=== PATIENT | female | born 1970 | race American Indian/Alaskan Native ===

== ENCOUNTER 2019-08-17 10:14 | Outpatient (CLI) | payer OTHER ==
--- NOTE | 2019-08-17 14:33 | Mammography Report ---
DIGITAL SCREENING MAMMOGRAM WITH CAD, 08/17/2019 INDICATION: Baseline screening mammography. TECHNIQUE: Digital bilateral 2D mammography was obtained in the craniocaudal and mediolateral obliq ue projections. This examination was interpreted with the benefit of Computer-Aided Detection analysi s. COMPARISON: None. FINDINGS: Breast Density: The breasts are heterogeneously dense, which may obscure small masses. The left breast is smaller than the right. A left upper asymmetry on the MLO view requires additional imaging. No architectural distortion or suspicious calcifications. There is no evidence of dominant mass, suspicious calcifications or architectural distortion in the right breast. IMPRESSION: Left asymmetry requires additional imaging. Recommend recall for left lateral and spot co mpression MLO views and left breast ultrasound if needed. Follow up recommendation: Special View: Spot Category 0: Incomplete. Needs additional imaging evaluation and/or prior mammograms for comparison. A "normal" or negative report should not discourage follow up or biopsy of a clinically significant f inding. A written summary of these findings will be mailed to the patient. The patient will be entered into a mammography reporting system which will generate a reminder letter for the patient's next appointmen t at the appropriate interval. The [employer] recommends yearly mammograms starting at age 40 and continuing as l jt as a woman is in good health. Breast MRI is recommended for women with an approximate 20-25% or greater lifetime risk of breast cancer, including women with a strong family history of breast or ova tanna cancer or who have been treated for Hodgkin's disease. Signer Name: Lupillo Kothari MD Signed: 08/17/2019 2:28 PM Workstation Name: [id number]
== END 2019-08-17 10:15 | disposition home or self-care (01) ==
LOC: MAMMO 10:14
PROVIDERS: ATTEND Family Medicine
DX: Z12.31 Encounter for screening mammogram for malignant neoplasm of breast (principal)
CPT/HCPCS: 77067

== ENCOUNTER 2019-09-01 09:07 | Outpatient (CLI) | payer SELFPAY ==
--- NOTE | 2019-09-01 11:16 | Mammography Report ---
DIGITAL DIAGNOSTIC MAMMOGRAM WITH CAD, -- 09/01/2019 INDICATION: Recalled to evaluate asymmetry. TECHNIQUE: Digital mammographic imaging was performed. Spot compression views were obtained. This examination was interpreted with the benefit of Computer-aided Detection analysis. COMPARISON: 08/17/2019 FINDINGS: Breast Density: The breast is heterogeneously dense, which may obscure small masses. Additional left mammographic views are negative. Satisfactory effacement of asymmetry on a spot compr ession view. IMPRESSION: No mammographic evidence of malignancy. Follow up recommendation: Routine yearly BI-RADS Category 1: Negative. A "normal" or negative report should not discourage follow up or biopsy of a clinically significant f inding. A written summary of these findings will be mailed to the patient. The patient will be entered into a mammography reporting system which will generate a reminder letter for the patient's next appointmen t at the appropriate interval. According to the [employer], yearly mammograms are recommended starting at age 40 and continuing as long as a woman is in good health. Breast MRI is recommended for women with an sara roximately 20-25% or greater lifetime risk of breast cancer, including women with a strong family his tory of breast or ovarian cancer and women who have been treated for Hodgkin's disease. Signer Name: Lupillo Kothari MD Signed: 09/01/2019 11:11 AM Workstation Name: [id number]
== END 2019-09-01 09:08 | disposition home or self-care (01) ==
LOC: MAMMO 09:07
PROVIDERS: ATTEND Advanced Practice Midwife
DX: R92.2 Inconclusive mammogram (principal)

== ENCOUNTER 2019-10-14 13:16 | Emergency (ER) | payer SELFPAY ==
--- NOTE | 2019-10-14 13:29 | Emergency Department Report ---
Blank Doc - Documentation Documentation: 49-year-old female that presents with complications from Acessa procedure such as pain and drainage that was done last month. Was sent by surgeon. This initial assessment/diagnostic orders/clinical plan/treatment(s) is/are subject to change based on patient's health status, clinical progression and re- assessment by fellow clinical providers in the ED. Further treatment and workup at subsequent clinical providers discretion. Patient/guardians urged not to elope from the ED as their condition may be serious if not clinically assessed and managed. Initial orders include: 1- Patient sent to MAIN ED for further evaluation and treatment 2- labs
[2019-10-14 14:02] LABS: Hematocrit 28.8 % (30.3-42.9); Mean Corpuscular HGB Conc 31 % (30-34); Platelet Count 766 K/mm3 (140-440); Red Blood Count 4.22 M/mm3 (3.65-5.03)
[2019-10-14 14:12] LABS: Mean Corpuscular Volume 68 fl (79-97)
[2019-10-14 14:13] LABS: Red Cell Distribution Width 25.5 % (13.2-15.2)
[2019-10-14 14:22] LABS: BUN/Creatinine Ratio 5; Blood Urea Nitrogen 4 mg/dL (7-17); Calcium 8.8 mg/dL (8.4-10.2); Hemolysis Index 11
[2019-10-14 15:01] LABS: Anisocytosis 2+; Hypochromasia 1+; Macrocytosis Few; Platelet Estimate Consistent w Auto; Total Cells Counted 100
[2019-10-14 15:26] LABS: Bilirubin,Urine NEG (Negative); Blood,Urine SM (Negative); Color,Urine Yellow (Yellow); Mucus,Urine 2+ /HPF; Protein,Urine <15 mg/dL mg/dL (Negative); Urobilinogen,Urine < 2.0 mg/dL (<2.0)
--- NOTE | 2019-10-14 17:15 | Emergency Department Report ---
ED Female HPI - General Chief complaint: Abdominal Pain Stated complaint: COMPLICATIONS AFTER PROCEDURE Time Seen by Provider: 10/14/19 13:27 Source: patient Mode of arrival: Ambulatory Limitations: No Limitations - History of Present Illness Initial comments: Patient is a 49-year-old female who has a history of uterine fibroids who is presenting with competitions from her uterine artery embolization. Patient received this procedure outside imaging clinic on September 22. Patient states since that time she's developed a very strong odor and also has a pressure-like sensation when she urinates. Patient is still able to urinate and is been no retention. Patient denies fevers chills nausea vomiting or abdominal pain at baseline. The patient states that she has some mild spotting and occasionally will have a small amount of tissue, out. Patient states she contacted her doctor who did the procedure and was started on antibiotics s everal days ago and also was told that she needed to come to the emergency department for an emergency D&C - Related Data Allergies Allergy/AdvReac Type Severity Reaction Status Date / Time No Known Allergies Allergy Unverified 08/17/19 10:14 ED Review of Systems ROS: Stated complaint: COMPLICATIONS AFTER PROCEDURE Other details as noted in HPI Comment: All other systems reviewed and negative ED Past Medical Hx - Past Medical History Previous Medical History?: Yes Additional medical history: Uterine Fibroids - Surgical History Past Surgical History?: Yes Additional Surgical History: Tubal ligation. Fibroid embolization - Social History Smoking Status: Never Smoker Substance Use Type: None ED Physical Exam - General Limitations: No Limitations General appearance: alert, in no apparent distress - Head Head exam: Present: atraumatic, normocephalic - Eye Eye exam: Present: normal appearance - ENT ENT exam: Present: mucous membranes moist - Neck Neck exam: Present: normal inspection - Respiratory Respiratory exam: Present: normal lung sounds bilaterally. Absent: respiratory distress, wheezes, rales, rhonchi - Cardiovascular Cardiovascular Exam: Present: regular rate, normal rhythm, normal heart sounds. Absent: systolic murmur, diastolic murmur, rubs, gallop - GI/Abdominal GI/Abdominal exam: Present: soft, distended, normal bowel sounds. Absent: tenderness, guarding, rebound - Extremities Exam Extremities exam: Present: normal inspection - Back Exam Back exam: Present: normal inspection - Neurological Exam Neurological exam: Present: alert, oriented X3 - Psychiatric Psychiatric exam: Present: normal affect, normal mood - Skin Skin exam: Present: warm, dry, intact, normal color. Absent: rash ED Course Vital Signs 10/14/19 13:28 Temperature 97.6 F Pulse Rate 98 H Respiratory 18 Rate Blood Pressure 120/87 O2 Sat by Pulse 100 Oximetry ED Medical Decision Making - Lab Data Result diagrams: 10/14/19 13:35 10/14/19 13:35 Lab Results 10/14/19 10/14/19 10/14/19 Range/Units 13:35 13:35 14:51 WBC 4.3 L (4.5-11.0) K/mm3 RBC 4.22 (3.65-5.03) M/mm3 Hgb 9.0 L (10.1-14.3) gm/dl Hct 28.8 L (30.3-42.9) % MCV 68 L (79-97) fl MCH 21 L (28-32) pg MCHC 31 (30-34) % RDW 25.5 H (13.2-15.2) % Plt Count 766 H (140-440) K/mm3 Add Manual Diff Complete Total Counted 100 Seg Neuts % (Manual) 58.0 (40.0-70.0) % Band Neutrophils % 0 % Lymphocytes % (Manual) 28.0 (13.4-35.0) % Reactive Lymphs % (Man) 0 % Monocytes % (Manual) 9.0 H (0.0-7.3) % Eosinophils % (Manual) 3.0 (0.0-4.3) % Basophils % (Manual) 2.0 H (0.0-1.8) % Metamyelocytes % 0 % Myelocytes % 0 % Promyelocytes % 0 % Blast Cells % 0 % Nucleated RBC % Not Reportable Seg Neutrophils # Man 2.5 (1.8-7.7) K/mm3 Band Neutrophils # 0.0 K/mm3 Lymphocytes # (Manual) 1.2 (1.2-5.4) K/mm3 Abs React Lymphs (Man) 0.0 K/mm3 Monocytes # (Manual) 0.4 (0.0-0.8) K/mm3 Eosinophils # (Manual) 0.1 (0.0-0.4) K/mm3 Basophils # (Manual) 0.1 (0.0-0.1) K/mm3 Metamyelocytes # 0.0 K/mm3 Myelocytes # 0.0 K/mm3 Promyelocytes # 0.0 K/mm3 Blast Cells # 0.0 K/mm3 WBC Morphology Not Reportable Hypersegmented Neuts Not Reportable Hyposegmented Neuts Not Reportable Hypogranular Neuts Not Reportable Smudge Cells Not Reportable Toxic Granulation Not Reportable Toxic Vacuolation Not Reportable Dohle Bodies Not Reportable Pelger-Huet Anomaly Not Reportable Stephanie Rods Not Reportable Platelet Estimate Consistent w auto Clumped Platelets Not Reportable Plt Clumps, EDTA Not Reportable Large Platelets Not Reportable Giant Platelets Not Reportable Platelet Satelliting Not Reportable Plt Morphology Comment Not Reportable RBC Morphology Not Reportable Dimorphic RBCs Not Reportable Polychromasia Not Reportable Hypochromasia 1+ Poikilocytosis Not Reportable Anisocytosis 2+ Microcytosis 1+ Macrocytosis Few Spherocytes Not Reportable Pappenheimer Bodies Not Reportable Sickle Cells Not Reportable Target Cells Not Reportable Tear Drop Cells Not Reportable Ovalocytes Not Reportable Helmet Cells Not Reportable [place] Bodies Not Reportable Pinson Rings Not Reportable Kamryn Cells Not Reportable Bite Cells Not Reportable Crenated Cell Not Reportable Elliptocytes Not Reportable Acanthocytes (Spur) Not Reportable Rouleaux Not Reportable Hemoglobin C Crystals Not Reportable Schistocytes Not Reportable Malaria parasites Not Reportable Feroz Bodies Not Reportable Hem Pathologist Commnt No Sodium 142 (137-145) mmol/L Potassium 3.8 (3.6-5.0) mmol/L Chloride 106.4 (98-107) mmol/L Carbon Dioxide 23 (22-30) mmol/L Anion Gap 16 mmol/L BUN 4 L (7-17) mg/dL Creatinine 0.8 (0.7-1.2) mg/dL Estimated GFR > 60 ml/min BUN/Creatinine Ratio 5 % Glucose 71 (65-100) mg/dL Calcium 8.8 (8.4-10.2) mg/dL Urine Color Yellow (Yellow) Urine Turbidity Clear (Clear) Urine pH 6.0 (5.0-7.0) Ur Specific Ware 1.020 (1.003-1.030) Urine Protein <15 mg/dl (Negative) mg/dL Urine Glucose (UA) Neg (Negative) mg/dL Urine Ketones Neg (Negative) mg/dL Urine Blood Sm (Negative) Urine Nitrite Neg (Negative) Urine Bilirubin Neg (Negative) Urine Urobilinogen < 2.0 (<2.0) mg/dL Ur Leukocyte Esterase Tr (Negative) Urine WBC (Auto) 1.0 (0.0-6.0) /HPF Urine RBC (Auto) 1.0 (0.0-6.0) /HPF U Epithel Cells (Auto) 7.0 (0-13.0) /HPF Urine Mucus 2+ /HPF - Medical Decision Making Patient is medically stable at this time. Patient has a stable hemoglobin. Patient was wanting an emergency D&C was she is not meeting criteria. I did speak with Dr. Myers who is staff radiation therapist for [employer] issues agreed to see the patient in the morning to determine what the next best course of action would be for this patient. Patient's has been evaluated and the patient has a normal white count and normal hemoglobin and sepsis and anemia have been ruled out. Critical care attestation.: If time is entered above; I have spent that time in minutes in the direct care of this critically ill patient, excluding procedure time. ED Disposition Clinical Impression: DUB (dysfunctional uterine bleeding) Disposition: DC-01 TO HOME OR SELFCARE Is pt being admited?: No Does the pt Need Aspirin: No Condition: Stable Referrals: BAILEY MYERS MD [Staff Physician] - 3-5 Days ( Address: [address] [place] [id number] Hours: Closed Opens tomorrow 9 AM ) Time of Disposition: 17:15
[2019-10-14 17:26] VITALS: BP 132/89
== END 2019-10-14 17:25 | disposition home or self-care (01) ==
LOC: ED 13:16
DX: N93.8 Other specified abnormal uterine and vaginal bleeding (principal); Z98.51 Tubal ligation status; Z98.890 Other specified postprocedural states
CPT/HCPCS: 36415; 80048; 81001; 85007; 85025; 87086; 99283

== ENCOUNTER 2019-12-31 06:36 | Observation (INO) | payer OTHER, SELFPAY ==
--- NOTE | 2019-12-28 11:12 | Anesthesia Consultation ---
Anesthesia Consult and Med Hx - Airway Anesthetic Teeth Evaluation: Good ROM Head & Neck: Adequate Mental/Hyoid Distance: Adequate Mallampati Class: Class II Intubation Access Assessment: Good - Pulmonary Exam CTA: Yes - Cardiac Exam Cardiac Exam: RRR - Pre-Operative Health Status ASA Pre-Surgery Classification: ASA1 Proposed Anesthetic Plan: General Nerve Block: TAP - Pulmonary Hx Respiratory Symptoms: No - Central Nervous System Hx Psychiatric Problems: No - Gastrointestinal Hx Gastroesophageal Reflux Disease: No - Endocrine Hx Insulin Dependent Diabetes: No Hx Non-Insulin Dependent Diabetes: No Hx Thyroid Disease: No - Hematic Hx Anemia: Yes - Other Systems Hx Cancer: No
[2019-12-28 11:45] LABS: BUN/Creatinine Ratio 12; Blood Urea Nitrogen 7 mg/dL (7-17); Calcium 8.9 mg/dL (8.4-10.2); Hemolysis Index 1
--- NOTE | 2019-12-28 11:46 | History and Physical Report ---
History of Present Illness Date of examination: 12/28/19 History of present illness: Patient has been reassessed/reevaluated. H&P has been reviewed. No interval changes. This is a 49 years old female who presents with uterine fibroids. She complains of abdominal pain, abdominal pressure, pelvic pain, pelvic pressure, menorrhagia and intermenstrual bleeding. Associated symptoms include urinary frequency. Treatment tried to date includes uterine artery embolization with followup hysteroscopic myomectomy.. Prior to today's visit the patient has had MRI of pelvis, US of pelvis and CT of pelvis. The patient also presents with menstrual disorder. The symptoms began >1 year ago. She complains of mid-cycle spotting, heavy bleeding, dysmenorrhea, clotting, history of fibroids, fatigue and cramping. Number of pads used per day is > 10. Menstrual flow lasts 7 days. Patient reports that for pain she uses ibuprofen and narcotics. Patient's symptoms when present disrupts her normal daily activities Conservative therapies have failed. Patient desires definitive treatment Vital Signs: Patient Profile: 49 Years Old Female Height: 68 inches Weight: 181 pounds BMI: 27.52 Past History : 4 Term Births: 3 Premature Births: 0 Living Children: 3 Para: 3 Mult. Births: 0 Prev : 0 Prev. attempt? 0 Aborta: 1 Elect. Ab: 1 Spont. Ab: 0 Ectopics: 0 # 1 Delivery date: 1986 Delivery type: # 2 Delivery date: 1989 Delivery type: # 3 Delivery date: 1990 Delivery type: EAB Comments: D&C # 4 Delivery date: 1991 Delivery type: PAD CUTTER History Uterine Surgery (not C/S): negative Operations: D&C x 1 PP BTL(1991) UFE(09/22/2019) Hysteroscopy:with Myomectomy (10/16/2019) Hospitalizations: negative Anesthesia Complications: negative Abnormal PAP: negative Uterine Anomaly: positive fibroids HUMBERTO Exposure: negative Infertility: negative Infection History HIV Risk Eval: no Personal hx. of genital herpes: no Hx of STD: None Current Allergies: No known allergies Past Medical History: Fibroids - Past Surgical History: D&C x 1 PP BTL(1991) UFE(09/22/2019) Hysteroscopy:with Myomectomy (10/16/2019) Family History Summary: Other Family Member - Has No Family History of Ovarvian Cancer - Entered On: 10/19/2019 Other Family Member - Has No Family History of Colon Cancer - Entered On: 10/19/2019 Other Family Member - Has No Family History of Breast Cancer - Entered On: 10/19/2019 Other Family Member - Has Family History of Hypertension - Entered On: 10/19/2019 Other Family Member - Has Family History of Diabetes - Entered On: 10/19/2019 Other Family Member - Has Family History of CVA or Stroke - Entered On: 10/19/2019 Social History: Patient is Smoking History: Patient has never smoked. Risk Factors: Smoked Tobacco Use: Never smoker Smokeless Tobacco Use: Never Passive smoke exposure: no Drug use: no HIV high-risk behavior: no Caffeine use: 1 drinks per day Alcohol use: no Exercise: yes Times per week: 3 Seatbelt use: 100 % Review of Systems General Complains of fatigue. Denies fever, chills, sweats, anorexia, weakness, malaise, weight loss and sleep disorder. Complains of menorrhagia, abnormal vaginal bleeding, pelvic pain, painful periods and vaginal odor. Denies vaginal discharge, incontinence, dysuria, hematuria, urinary frequency, amenorrhea, genital sores, decreased libido, painful sex, urinary urgency, hot flashes, vaginal dryness and vaginal itching. CV Denies chest pains, palpitations, syncope, dyspnea on exertion, orthopnea, PND and peripheral edema. Resp Denies cough, dyspnea at rest, excessive sputum, hemoptysis, wheezing and pleurisy. GI Denies nausea, vomiting, diarrhea, constipation, change in bowel habits, abdominal pain, melena, hematochezia, jaundice, gas/bloating, indigestion/heartburn, dysphagia and odynophagia. Breast Denies left breast lump, right breast lump, nipple discharge, bloody discharge from nipple, breast pain, abnormal mammogram and breast enlargement. Psych Denies depression, anxiety, irritability and mood swings. Past History Past Medical History: other (SEE HPI) Past Surgical History: Other (SEE HPI) Social history: (SEE HPI), full code Family history: other (SEE HPI) Medications and Allergies Allergies Allergy/AdvReac Type Severity Reaction Status Date / Time No Known Allergies Allergy Verified 12/23/19 15:01 Home Medications Medication Instructions Recorded Confirmed Last Taken Type No Known Home Medications [No 12/23/19 12/23/19 Unknown History Reported Home Medications] Active Meds: Active Medications Acetaminophen (Tylenol) 650 mg PO PREOP NR Stop: 12/28/19 22:00 Bupivacaine HCl (Marcaine 0.5%) 40 ml INFILTRATI PREOP NR Stop: 12/28/19 22:00 Fentanyl (Sublimaze) 100 mcg IV ONCE NR Stop: 12/28/19 20:00 Cefazolin Sodium (Ancef/Sterile Water 2 Gm/20 Ml) 2 gm in 20 mls @ 80 mls/hr IV PREOP NR; Protocol Stop: 12/31/19 16:00 Lactated Ringer's (Lactated Ringers) 1,000 mls @ 42 mls/hr IV DIRECT STEPHANIE Midazolam HCl (Versed) 2 mg IV PREOP NR Stop: 12/28/19 23:59 Sodium Chloride (Nacl P/F Vial (10 Ml)) 1 ml INFILTRATI PREOP NR Stop: 12/28/19 20:00 Review of Systems Constitutional: other (SEE HPI) Exam - Physical Exam Narrative exam: HEENT: normocephalic, no lesions or deformities Neck/Thyroid: supple, thyroid normal Skin no significant abnormal lesions or rashes Chest: respiratory effort normal, clear to auscultation CV: regular, normal S1-S2, no murmur, no rub, no gallop Abdomen: normal bowel sounds, soft, nontender, no HSM Musculoskeletal: grossly normal ROM in joints, no joint tenderness or muscle weakness Neuro: no gross anomalities Extremities: no clubbing, cyanosis, or edema PAD CUTTER Exams Vulva/Vagina: normal appearance, no discharge, lesions. No evidence of cystocele or rectocele. Cervix: normal appearance, no lesions, no discharge Uterus: Enlarged uterus 18 weeks in size Adnexae: no masses or tenderness Rectovaginal: exam defered Results - Labs CBC & Chem 7: 12/28/19 11:10 12/28/19 11:10 Assessment and Plan - Patient Problems (1) Intramural leiomyoma of uterus Current Visit: No Status: Acute Plan to address problem: Diagnosis explained to patient . Questions answered. Discussed with patient various medical, surgical and radiological therapies common for treatment inc luding expectant management, myomectomy hysterectomy and uterine artery embolization Conservative therapies have failed. Patient desires definitive treatment Patient desires hysterectomy Discussed risks and benefits of laparotomy, laparoscopy, vaginal and robotic assisted approaches for hysterect omies Patient desires robotic assisted total hysterectomy.Patient desires robotic assisted total hysterectomy. Consent reviewed and signed . The risks and alternatives for this surgery were reviewed with the patient. Discuss the risks of the surgery including infection, bleeding possibly heavy enough to require a blood transfusion, possible damage to bowel, bladder or ureter. Patient understand that this surgery with make her sterile.Patient understands if her ovaries are removed she will become menopausal. Also if unable to complete robitcally a laparotomy may be required. Patient advised the small risks of spreading of malignancy if morcellator is used during the surgery patient understands and approve of use if necessary (2) Menometrorrhagia Current Visit: No Status: Acute Plan to address problem: Probably secondary to # 1 (3) Submucous leiomyoma of uterus Current Visit: No Status: Acute Plan to address problem: Probably secondary to # 1 (4) Vaginal odor Current Visit: No Status: Acute Plan to address problem: Probably secondary to # 2
[2019-12-28 12:00] LABS: Basophils # (Auto) 0.1 K/mm3 (0.0-0.1); Basophils % (Auto) 1.5 % (0.0-1.8); Eosinophils # (Auto) 0.3 K/mm3 (0.0-0.4); Eosinophils % (Auto) 3.8 % (0.0-4.3); Hematocrit 27.8 % (30.3-42.9); Hemoglobin 8.4 gm/dl (10.1-14.3); Lymphocytes # (Auto) 1.4 K/mm3 (1.2-5.4); Lymphocytes % (Auto) 20.8 % (13.4-35.0); Mean Corpuscular HGB Conc 30 % (30-34); Monocytes # (Auto) 0.5 K/mm3 (0.0-0.8); Monocytes % (Auto) 7.8 % (0.0-7.3); Platelet Count 732 K/mm3 (140-440); Red Blood Count 4.14 M/mm3 (3.65-5.03)
[2019-12-28 12:03] LABS: Mean Corpuscular Volume 67 fl (79-97); Red Cell Distribution Width 21.4 % (13.2-15.2)
[~2019-12-31 06:36] MED LIST: ACETAMINOPHEN 325 MG/10.15 ML ORAL LIQD UNIT DOSE PO NR; BUPIVACAINE/PF (0.5%) 5 MG/1 ML 10 ML VIAL INFILTRATI NR; LACTATED RINGERS 1,000 ML IV SCH; MIDAZOLAM 2 MG/2 ML INJ IV NR; SODIUM CHLORIDE 0.9% P/F 10 ML VIAL INFILTRATI NR; fentaNYL 100 MCG/2 ML INJ IV NR
[2019-12-31] MEDS ORDERED: fentaNYL 100 MCG/2 ML INJ IV NR (07:00)
[2019-12-31] MEDS ORDERED: ACETAMINOPHEN 325 MG/10.15 ML ORAL LIQD UNIT DOSE PO NR (07:00)
[2019-12-31] MEDS ORDERED: MIDAZOLAM 2 MG/2 ML INJ IV NR (07:00)
[2019-12-31] MEDS ORDERED: BUPIVACAINE/PF (0.5%) 5 MG/1 ML 10 ML VIAL INFILTRATI NR (07:00)
[2019-12-31] MEDS ORDERED: BACTERIOSTATIC SODIUM CHLORIDE 0.9% 30 ML VIAL INFILTRATI ONE (07:07)
[2019-12-31] MEDS ORDERED: ceFAZolin/Water 2 GM/20 ML 2 GM/20 ML SYRINGE IV NR (08:00)
--- NOTE | 2019-12-31 08:00 | Anesthesia Day of Surgery ---
Anesthesia Day of Surgery - Day of Surgery Patient Examined: Yes Patient H&P Reviewed: Yes Patient is NPO: Yes
[2019-12-31] MEDS ORDERED: fentaNYL 100 MCG/2 ML INJ IV PRN (08:03)
[2019-12-31] MEDS ORDERED: HYDROmorphone 1 MG/1 ML INJ IV PRN (08:03)
[2019-12-31] MEDS ORDERED: ONDANSETRON 4 MG/2 ML INJ IV PRN ×2 (08:03→15:46)
[2019-12-31] MEDS ORDERED: ROCURONIUM 50 MG/5 ML INJ IV ONE ×2 (08:29→13:41)
[2019-12-31] MEDS ORDERED: dexAMETHasone 20 MG/5 ML VIAL ONE (08:29)
[2019-12-31] MEDS ORDERED: HYDROmorphone 1 MG/1 ML INJ ONE (08:29)
[2019-12-31] MEDS ORDERED: LIDOCAINE MPF (2%) 20 MG/1 ML VIAL 5 ML ONE (08:29)
[2019-12-31] MEDS ORDERED: propofoL 200 MG/20 ML VIAL IV ONE (08:30)
[2019-12-31] MEDS ORDERED: NEOMY 40 MG/POLYMYXIN B 200,000 UNITS/ML (GU) AMPULE IR ONE ×2 (08:30→10:07)
[2019-12-31] MEDS ORDERED: LACTATED RINGERS 1,000 ML ONE ×3 (09:53→14:56)
[2019-12-31] MEDS ORDERED: SODIUM CHLORIDE 0.9% IRRIG SOLN 2000 ML IR ONE (10:07)
[2019-12-31] MEDS ORDERED: SODIUM CHLORIDE 0.9% IRR 1,500 ML BOTTLE IR ONE (10:07)
[2019-12-31] MEDS ORDERED: METHYLENE BLUE 50 MG/10 ML AMP ONE ×2 (10:39→11:17)
[2019-12-31] MEDS ORDERED: SODIUM CHLORIDE 0.9% 1000 ML 1,000 ML ONE (11:17)
[2019-12-31] MEDS ORDERED: METHYLENE BLUE 50 MG/10 ML AMP INTRA-URET ONE (11:21)
[2019-12-31] MEDS ORDERED: SODIUM CHLORIDE 0.9% IRR 1,000 ML BOTTLE IR ONE (11:22)
[2019-12-31] MEDS ORDERED: NEOSTIGMINE 10MG/10 ML INJ MDV ONE (13:43)
[2019-12-31] MEDS ORDERED: GLYCOPYRROLATE 0.4 MG/2 ML INJ ONE (13:43)
[2019-12-31] MEDS ORDERED: fentaNYL 100 MCG/2 ML INJ ONE (13:52)
--- NOTE | 2019-12-31 14:10 | Post Operative Note ---
Date of procedure: 12/31/19 Pre-op diagnosis: symptomatic leiomyomas Post-op diagnosis: same Procedure: RAT w/RS&O FAVIOLA left salpingectomy Anesthesia: GETA Surgeon: SHAMA LEROY Estimated blood loss: 50-100ml Pathology: list Specimen disposition: to lab Condition: stable Disposition: PACU
[2019-12-31] MEDS ORDERED: D5W/LACTATED RINGERS 1,000 ML IV SCH (15:46)
[2019-12-31] MEDS ORDERED: MAGNESIUM HYDROXIDE (MOM) ORAL LIQD UDC PO PRN (15:46)
[2019-12-31] MEDS ORDERED: ACETAMINOPHEN 325 MG TAB PO PRN (15:46)
[2019-12-31] MEDS: KETOROLAC 30 MG/1 ML INJ IV SCH ×2 (16:18→21:47)
--- NOTE | 2019-12-31 16:32 | Post Anesthesia Evaluation ---
- Post Anesthesia Evaluation Patient Participated: Yes Airway Patent: Yes Stable Respiratory Function: Yes Nausea/Vomiting: No Temp > 96.8F: Yes Pain Manageable: Yes Adequeate Hydration: Yes Anesthesia Complications: No Block Receding Appropriately: Yes Patient on Ventilator: No
--- NOTE | 2019-12-31 18:29 | Operative Report ---
Operative Report Operative Report: Operative Report: Date of procedure: December 31, 2019 Pre-operative diagnosis: Leiomyomata with menorrhalgia, dysmenorrhea and pelvic pain. Patient status post uterine fibroid embolization and hysteroscopic myomectomy Post-operative diagnosis: Same plus pelvic adhesive disease Procedure name(s): Robotic assisted total hysterectomy with bilateral salpingectomy and right oophorectomy Surgeon: Ben Monterroso MD Field Training Agent: Jaqueline Mohan, [employer] certified network professional Anesthesia: General EBL: 50 mL Complications: None Findings: Uterus approximately 18-20 weeks in size with multiple large myomas in a degenerating state. Adhesions between the anterior abdominal wall and anterior uterus also adhesion between the right pelvic sidewall and right adnexa posteriorly adhesions of colon and omental adhesions anterior uterus. The uterus was essentially turned to the patient's left right cornua anterior. The adhesions between the anterior abdominal wall anterior and and right side of uterus were very dense with inflammatory changes. Patient's right ovary was adhesed to the posterior uterus and he said of right pelvic sidewall. Patient's left adnexa showed interrupted fallopian tube with a normal-appearing ovary. Specimen(s): Uterus including cervix was bilateral adnexa Procedure: Patient was brought to the operating room where general anesthesia was induced without difficulty. Patient was placed in the dorsal lithotomy position. Prepped and draped in the usual sterile manner for robotic procedure. Ramos catheter was placed without difficulty. Speculum was placed in the vagina. A large V-Care Uterine manipulator was placed without difficulty. Attention was now switched to the patient's abdomen. A vertical supra-umbilicus incision was made with a scalpel. A 10-12 trocar was placed in this incision under direct visualization. Intra-abdominal placement was verified with no evidence of internal organ damage. The patient pelvic findings were noted as above. It was determined that the patient was a candidate for robotic procedure. On both sides the umbilical incision at 8 cm, incisions were made for robotic trocar. Each robotic trocar was placed under direct visualization with no evidence of internal organ damage. Two neurosurgery physician ports were t hen placed. Both project administrative assistant ports were 5 mm. One trocar was placed 2 fingerbreadths above the right iliac crest with the other placed in between the camera port and the right robotic instrument port. Both was placed under direct visualization with no evidence of internal organ damage. At this time a 5 mm camera was placed through the right lower quadrant incision visualized in the midline incision. Tavo Pop fascia closure instrument was then placed in to this incision under direct visualization. The 1012 trocar was then placed back through this incision. At this time the patient was placed in extreme Trendelenburg. The da Radha robot was then docked on the patient's left side. The da Radha robot was connected to the robotic instruments and camera. At this time I took my place under the robotic operating coyne. The thick anterior adhesions were taken down meticulously, freeing the uterus from its rotated state. The adhesions of the right abdominal wall were taken down next and decision was made to remove the right ovary due to his dense adhesions to the uterus and myoma. The posterior adhesions between colon and the uterus were then taken down freeing the cul-de-sac with additional removal of the omental adhesions at the fundus. Removal of the adhesions actually revealed that the uterus was approximately 18 to 20 weeks and in size. Starting on the patient's right side the right ureter was clearly seen out of the operative field. The ovarian vessels were clearly seen cauterize and cut with the robotic scissors. The meso salpinx were cauterized and cut reaching to the round ligament. The round ligament was very elongated due to the torsion of the uterus was located and cauterized and cut. The leaves of the broad ligament on that side was anteriorly and posteriorly. The anterior leaves were use to form a bladder flap anteriorly the posterior leaf was cut exposing the uterine vessels on that side. The uterine vessels were cauterized and cut the bladder flap was more clearly made. Attention was then switched to the patient's left side where further lysis of adhesion was needed to clearly expose the the adnexa. Bipolar cautery was used to cauterize and cut at the utero-ovarian complex. Next the round ligament was cauterized and cut. The broad ligament was opened anteriorly and posteriorly and the bladder flap was formed on this side through some thick inflammatory adhesions. After inspecting the bladder flap insured no evidence of bladder injury. Due to the difficulty of visualizing the V care cup and a posterior cul-de-sac decision was made to enter anteriorly. The colpotomy was started starter at approximately 11:00 position and taken to the 8 o'clock position. Returning back to the 11 o'clock position it was taken approximately to 2 o'clock position. Multiple manipulations were needed due to the size of the uterus to ensure good visualization. The colpotomy was continued from a 8:00 at approximately 6:00 and then completed from 6:00 to 8:00 completely, the colpotomy was then started. Incision started at 6:00 until the V-Care could be seen. This incision was extended from 6:00 to 2:00. At this time colpotomy was complete with no evidence of adjacent organ damage. Due to the large size decision was to remove multiple myomas and parts of the uterus in order to fit through the colpotomy. This task was made difficult due to the degenerating state of the myomas not presenting clear planes of incision. Progressively myomas were removed from the uterus and passed through the colpotomy until the uterus was deflated to a size where it could be removed through the colpotomy by the neurosurgery physician. The vaginal cuff was irrigated and cauterized and found to be hemostatic. During the case due to the extensive lysis of adhesions patient had been given methylene blue IV with resultant dye transverse into the patient's bladder with no evidence of spillage through patient's ureters. Also the bladder was filled with 180 cc of methylene blue revealing no evidence of damage to her bladder. The cuff was closed with roboticly using 0 V- Lock suture. This closure was hemostatic after irrigation and Bovie. All pedicles were inspected and found to be hemostatic. The ureters were identified bilaterally and found to be functioning normal. The Ramos bag had clear green urine. Bruno is placed across the vaginal cuff. All instruments were then removed. The large trocar sites were closed in layers using a Tavo Pop with 2-0 Vicryl and 4-0 Monocryl. The smaller incisions were closed subcuticularly with 4-0 Monocryl l. The patient tolerated procedure well. She was awakened in the operating room and accompanied to the recovery room in good condition.
--- NOTE | 2019-12-31 18:31 | Event Note ---
Date: 12/31/19 Day of surgery. Discuss operative findings with patient including the size of her fibroids and the multiple adhesions and characteristic of the embolized myomas. Discussed the reason for placing in a bladder. Questions answered. Patient without fever. Will ambulate in halls this evening. Good urine output. We will continue routine postoperative care.
[2019-12-31] MEDS: ceFAZolin/NS 1 GM/50 ML 1 GM/50 ML BAG IV SCH (21:05)
[2020-01-01] MEDS: DOCUSATE SODIUM 100 MG CAP PO SCH ×2 (04:32→10:26)
[2020-01-01] MEDS: HYDROcodone/ACETAMINOPHEN 5-325 MG TAB PO PRN ×2 (04:33→10:27)
[2020-01-01] MEDS: ceFAZolin/NS 1 GM/50 ML 1 GM/50 ML BAG IV SCH (04:36)
[2020-01-01] MEDS: KETOROLAC 30 MG/1 ML INJ IV SCH (05:34)
[2020-01-01 06:29] LABS: Hematocrit 23.8 % (30.3-42.9); Hemoglobin 7.5 gm/dl (10.1-14.3)
--- NOTE | 2020-01-01 08:28 | Short Stay Summary ---
Short Stay Documentation Date of service: 01/01/20 - History Past Medical History: other (SEE HPI) Past Surgical History: Other (SEE HPI) Social history: (SEE HPI), full code - Allergies and Medications Current Medications: Allergies No Known Allergies Allergy (Verified 12/23/19 15:01) Home Medications Medication Instructions Recorded Confirmed Last Taken Type Ferrous Sulfate [Feosol 325 MG tab] 325 mg PO BID #60 tablet 12/31/19 Unknown Rx Ibuprofen [Motrin 800 MG tab] 800 mg PO Q6H PRN #30 tablet 12/31/19 Unknown Rx oxyCODONE /ACETAMINOPHEN [Percocet 1 - 2 tab PO Q6HR PRN #20 tablet 12/31/19 Unknown Rx 5/325 mg] Active Medications Acetaminophen (Tylenol) 650 mg PO Q4H PRN PRN Reason: Pain MILD(1-3)/Fever >100.5/[place] Acetaminophen/Hydrocodone Bitart ([place] 5/325) 2 each PO Q4H PRN PRN Reason: Pain, Moderate (4-6) Last Admin: 01/01/20 04:33 Dose: 2 each Documented by: Docusate Sodium (Colace) 100 mg PO BID STEPHANIE Last Admin: 01/01/20 04:32 Dose: Not Given Documented by: Dextrose/Lactated Ringer's ([email or web address]) 1,000 mls @ 125 mls/hr IV DIRECT STEPHANIE Magnesium Hydroxide (Milk Of Magnesia) 30 ml PO Q4H PRN PRN Reason: Constipation Ondansetron HCl (Zofran) 4 mg IV Q8H PRN PRN Reason: Nausea And Vomiting Last Admin: 12/31/19 16:19 Dose: 4 mg Documented by: - Physical exam General appearance: no acute distress HEENT: Atraumatic Lungs: Normal air movement Breasts: deferred Heart: Regular rate Gastrointestinal: tenderness (Appropriately), distended (Slightly), other (Soft) Female Genitourinary: deferred Rectal Exam: deferred Extremities: no ischemia, pulses intact, No edema Neurological: Normal gait, Normal speech, Strength at 5/5 X4 ext - Brief post op/procedure progress note Date of procedure: 12/31/19 (See operative note for details) - Hospital course Hospital course: Patient was admitted and underwent above procedure without complications. Her post operative course was benign she was afebrile throughout. Patient postoperative day 1 hematocrit was 23%. Patient had no orthostatic symptoms. Patient was tolerating regular diet and voiding without difficulty at time of discharge. Patient incision was healing well without evidence of infection. - Disposition Condition at discharge: Good Disposition: DC-01 TO HOME OR SELFCARE - Discharge Diagnoses (1) Intramural leiomyoma of uterus Status: Acute (2) Menometrorrhagia Status: Acute (3) Submucous leiomyoma of uterus Status: Acute (4) Vaginal odor Status: Acute Short Stay Discharge Plan Activity: advance as tolerated Diet: regular Wound: open to air Additional Instructions: Patient instructed no heavy lifting for 4 weeks. No intercourse for 8 weeks. Call office for fever, chills, nausea, vomiting or pain not controlled by pain medications. Ambulation is encouraged. Patient's call for heavy vaginal bleeding. Patient instructed to keep her scheduled post operative office appointment. Follow up with: PRIMARY CARE, [Primary Care Provider] - 7 Days Prescriptions: Ferrous Sulfate [Feosol 325 MG tab] 325 mg PO BID #60 tablet Ibuprofen [Motrin 800 MG tab] 800 mg PO Q6H PRN #30 tablet PRN Reason: Pain oxyCODONE /ACETAMINOPHEN [Percocet 5/325 mg] 1 - 2 tab PO Q6HR PRN #20 tablet PRN Reason: Pain, Moderate
--- NOTE | 2020-01-01 08:29 | Event Note ---
Date: 01/01/20 Patient without complaint denies any nausea or orthostatic symptoms patient reported without any difficulty. Will advance diet this a.m. and if tolerating regular diet will be stable for discharge
[2020-01-01 13:12] VITALS: BP 114/72
== END 2020-01-01 15:09 | disposition home or self-care (01) ==
LOC: OR 06:36 → OB 14:00
PROVIDERS: ADMIT Obstetrics & Gynecology; ATTEND Obstetrics & Gynecology
DX: N92.1 Excessive and frequent menstruation with irregular cycle (principal); N73.6 Female pelvic peritoneal adhesions (postinfective); D25.0 Submucous leiomyoma of uterus; D25.1 Intramural leiomyoma of uterus; Z98.890 Other specified postprocedural states; Z90.710 Acquired absence of both cervix and uterus
CPT/HCPCS: 36415; 58573; 64450; 80048; 84703; 85014; 85018; 85025; 86850; 86900; 86901; 88305; 88309; 96374; 96375; 96376; A4217; G0378; J0690; J1100; J1170; J1885; J2250; J2405; J2704; J2710; J3010; J7120; Q9968; S2900; 88342; J7030